=== PATIENT | male | born 2000 ===

== ENCOUNTER 2024-01-28 15:28 | Emergency (ER) | payer OTHER, SELFPAY ==
[2024-01-28 15:32] VITALS: BP 123/68; PULSE 65; RESP 16; TEMP 36.8; O2SAT 100; BMI 19.2
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
[2024-01-28 17:30] LABS: MANUAL DIFF FLAG NO
[2024-01-28 17:42] LABS: Basophils Percent Auto 0.3 % (0-2); Hematocrit 45.7 % (42.0-52.0); Hemoglobin 15.6 g/dl (14.0-18.0); Imm Gran Abs Auto 0.03 X10*3/uL (0.00-0.03); Imm Gran Pct Auto 0.2 % (0.0-0.4); Lymphocytes Percent Auto 7.8 % (20-40); Mean Corpuscular HGB Conc 34.1 g/dl (31.0-36.0); Mean Corpuscular Hemoglobin 30.9 pg (27.0-33.0); Mean Corpuscular Volume 90.5 fL (80.0-98.0); Mean Platelet Volume 9.6 fL (9.4-12.4); Monocytes Absolute Auto 0.2 X10*3/uL (0.1-1.2); Monocytes Percent Auto 1.8 % (2-11); Neutrophils Absolute Auto 11.7 x10*3/uL (2.0-8.3); Neutrophils Percent Auto 89.9 % (45-73); Platelet Count 280 X10*3/uL (160-400); Red Blood Count 5.05 X10*6/uL (4.60-5.80); Red Cell Distribution Width 12.6 % (11.0-16.0)
[2024-01-28 17:46] LABS: Alanine Aminotransferase 19 U/L (0-40); Albumin Level 4.7 g/dL (3.5-5.0); Alkaline Phosphatase 99 U/L (39-117); Anion Gap 15 (12-20); Aspartate Amino Transferase 19 U/L (5-37); Bilirubin Total 0.5 mg/dL (0.0-1.0); Blood Urea Nitrogen 11 mg/dL (9-16); Calcium 10.1 mg/dL (8.4-10.2); Carbon Dioxide 23 mmol/L (22-29); Chloride 107 mmol/L (96-108); Creatinine Clr Calc Pharmacy 121.7; Estimated Glomerular Filt Rate > 60; Glucose Random 123 mg/dL (60-115); Potassium 3.5 mmol/L (3.3-5.1); Sodium 141 mmol/L (135-145); Total Protein 8.1 g/dL (6.5-8.0)
[2024-01-28 21:20] VITALS: BP 146/79; PULSE 50; RESP 12; TEMP 36.9; O2SAT 100
[2024-01-28] MEDS: Ondansetron ODT 4 MG TAB.RAPDIS TRANSLINGU (21:35)
[2024-01-29] MEDS: ondansetron HCL 4 MG/2 ML VIAL IVPUSH (00:24)
[2024-01-29] MEDS: 0.9 % Sodium Chloride 1,000 ML 999 ML IV (00:25)
[2024-01-29] MEDS: LORazepam 2 MG/ML VIAL IVPUSH (00:26)
[2024-01-29 00:32] VITALS: BP 141/70; PULSE 55; RESP 18; O2SAT 100
== END 2024-01-29 02:15 | disposition home or self-care (01) ==
PROVIDERS: Physician Assistant; Emergency Provider Internal Medicine
DX: Z04.1 Encounter for examination and observation following transport accident (principal); F11.13 Opioid abuse with withdrawal
CPT/HCPCS: 36415; 80053; 85025; 96361; 96374; 96375; 99284; J2060; J2405